=== PATIENT | male | born 1980 | race Caucasian/White ===

== ENCOUNTER 2018-10-31 05:23 | Emergency (ER) | payer OTHER ==
[~2018-10-31] VITALS: Ht 177.8 cm; Wt 90.7 kg
[2018-10-31] MEDS ORDERED: NORCO 5-325 TA1 EAC1 PO (07:38)
[2018-10-31 07:47] VITALS: BP 133/79
== END 2018-10-31 07:45 | disposition home or self-care (01) ==
LOC: M.ERS 05:23
DX: S12.600A Unspecified displaced fracture of seventh cervical vertebra, initial encounter for closed fracture (principal); V49.69XA Unspecified car occupant injured in collision with other motor vehicles in traffic accident, initial encounter; Y93.89 Activity, other specified; Y92.89 Other specified places as the place of occurrence of the external cause; Y99.8 Other external cause status